=== PATIENT | female | born 1995 | race African-American/Black ===

== ENCOUNTER 2017-02-26 07:39 | Emergency (ER) | payer BC ==
[~2017-02-26] VITALS: Ht 170.2 cm; Wt 78.5 kg
[2017-02-26 07:45] VITALS: BP 142/70
--- NOTE | 2017-02-26 08:12 | PHYS DOC ---
Past Medical History Past Medical History: No Pertinent History Past Surgical History: Tonsillectomy Alcohol Use: Occasionally Drug Use: None Adult General Chief Complaint Chief Complaint: LACERATION/AVULSION [facility] HPI Patient is a 21 year old female resents to the emergency department stating that she has a cut on the base of her left index finger. She states last night she was brushing dishes when a dish cut her. She states that she has washes area multiple times. She felt that she needed to come in and have it looked at today as it has been bleeding off and on. Patient states her last tetanus immunization was in 2008. Patient has full range of motion of her hand. Patient is right hand dominant. Review of Systems Review of Systems Constitutional: Denies fever or chills [] Eyes: Denies change in visual acuity, redness, or eye pain [] HENT: Denies nasal congestion or sore throat [] Respiratory: Denies cough or shortness of breath [] Cardiovascular: No additional information not addressed in HPI [] GI: Denies abdominal pain, nausea, vomiting, bloody stools or diarrhea [] : Denies dysuria or hematuria [] Musculoskeletal: Denies back pain or joint pain [] Integument: Denies rash or skin lesions. Laceration to the left index finger Neurologic: Denies headache, focal weakness or sensory changes [] Endocrine: Denies polyuria or polydipsia [] Current Medications Current Medications Current Medications Medications (Trade) Dose Ordered Sig/Reinier Start Time Stop Time Status Last Admin Dose Admin Diphtheria/ Tetanus/Acell Pertussis (Boostrix) 0.5 ml ONCE ONCE 02/26/17 08:15 02/26/17 08:16 Allergies Allergies Allergies Coded Allergies Type Severity Reaction Last Updated Verified No Known Drug Allergies 06/07/14 No Physical Exam Physical Exam Constitutional: Well developed, well nourished, no acute distress, non-toxic appearance. [] HENT: Normocephalic, atraumatic, bilateral external ears normal, oropharynx moist, no oral exudates, nose normal. [] Eyes: PERRLA, EOMI, conjunctiva normal, no discharge. [] Neck: Normal range of motion, no tenderness, supple, no stridor. [] Cardiovascular:Heart rate regular rhythm, no murmur [] Lungs & Thorax: Bilateral breath sounds clear to auscultation [] Skin: Warm, dry, no erythema, no rash. Patient with 0.5 cm laceration noted to the base of the left index finger. No bleeding or drainage noted from the site. Back: No tenderness Extremities: No tenderness, no cyanosis, no clubbing, ROM intact, no edema. [] Neurologic: Alert and oriented X 3, normal motor function, normal sensory function, no focal deficits noted. [] Psychologic: Affect normal, judgement normal, mood normal. [] Current Patient Data Vital Signs Vital Signs Date Time Temp Pulse Resp B/P (MAP) Pulse Ox O2 Delivery O2 Flow Rate FiO2 02/26/17 07:45 98.0 85 16 97 Room Air 98.0 EKG EKG [] Radiology/Procedures Radiology/Procedures [] Course & Med Decision Making Course & Med Decision Making Pertinent Labs and Imaging studies reviewed. (See chart for details) Site was cleaned with soap and water. Dermabond was used to closed the area with Steri-Strips. Patient was provided with signs and symptoms of infections and signs and symptoms to return to the emergency department. Patient agrees with discharge instructions, treatment regimen and followup recommendations. Patient will be discharged home in stable condition. [] Dragon Disclaimer Dragon Disclaimer This electronic medical record was generated, in whole or in part, using a voice recognition dictation system. Departure Departure Impression: Primary Impression: Laceration of finger Disposition: 01 HOME, SELF-CARE Condition: STABLE Referrals: NON,STAFF (PCP) Patient Instructions: Diphtheria Toxoid; Tetanus Toxoid Adsorbed, DT, Td, Laceration Care, Adult, Rozm-he-Lian, Skin Adhesive Strip Removal, Sterile Tape Wound Closure Additional Instructions: Activity as tolerated Tylenol or Ibuprofen for pain and discomfort Keep the area clean and dry Clean the site with soap and water at least twice a day Watch for signs and symptoms of infections: redness, warmth, tenderness or any yellow/greenish drainage if this should happen followup with your primary care provider immediately Followup with your primary care provider in 3-5 days Return to emergency department as needed for signs and symptoms that become worse. LOREN PANIAGUA APRN February 26, 2017 08:12
[2017-02-26] MEDS ORDERED: DIPHTH,PERTUSS(ACELL),TET TOX 0.5 ML DISP.SYRIN. VAX IM ONE (08:15)
== END 2017-02-26 08:29 | disposition home or self-care (01) ==
LOC: ER 07:39
DX: S61.211A Laceration without foreign body of left index finger without damage to nail, initial encounter (principal); W45.8XXA Other foreign body or object entering through skin, initial encounter; Y93.89 Activity, other specified; Y92.89 Other specified places as the place of occurrence of the external cause; Y99.8 Other external cause status
CPT/HCPCS: 12001; 90471; 90715; 99283-25

== ENCOUNTER 2017-03-04 22:35 | Emergency (ER) | payer BC ==
[~2017-03-04] VITALS: Ht 170.2 cm; Wt 77.1 kg
[2017-03-04 22:55] VITALS: BP 115/57
--- NOTE | 2017-03-04 23:13 | PHYS DOC ---
Past Medical History Past Medical History: No Pertinent History Past Surgical History: Tonsillectomy Alcohol Use: Occasionally Drug Use: None Adult General Chief Complaint Chief Complaint: UPPER EXTREMITY PAIN HPI HPI Patient is a 21 year old female who presents with moderate left upper extremity pain worse on lifting her upper extremity after receiving a tetanus vaccine on February 26, 2017 at [facility]. Patient denies any fever. Denies any rash. Denies any difficulty breathing or swallowing. She states she has tried Tylenol with no relief. Review of Systems Review of Systems Constitutional: Denies fever or chills [] Eyes: Denies change in visual acuity, redness, or eye pain [] HENT: Denies nasal congestion or sore throat [] Respiratory: Denies cough or shortness of breath [] Cardiovascular: No additional information not addressed in HPI [] GI: Denies abdominal pain, nausea, vomiting, bloody stools or diarrhea [] : Denies dysuria or hematuria [] Musculoskeletal: Left upper extremity pain after receiving tetanus vaccine Integument: Denies rash or skin lesions [] Neurologic: Denies headache, focal weakness or sensory changes [] Endocrine: Denies polyuria or polydipsia [] Allergies Allergies Allergies Coded Allergies Type Severity Reaction Last Updated Verified No Known Drug Allergies 06/07/14 No Physical Exam Physical Exam Constitutional: Well developed, well nourished, no acute distress, non-toxic appearance. [] HENT: Normocephalic, atraumatic, bilateral external ears normal, oropharynx moist, no oral exudates, nose normal. [] Eyes: PERRLA, EOMI, conjunctiva normal, no discharge. [] Neck: Normal range of motion, no tenderness, supple, no stridor. [] Cardiovascular:Heart rate regular rhythm, no murmur [] Lungs & Thorax: Bilateral breath sounds clear to auscultation [] Abdomen: Bowel sounds normal, soft, no tenderness, no masses, no pulsatile masses. [] Skin: Warm, dry, no erythema, no rash. [] Back: No tenderness, no CVA tenderness. [] Extremities: Tattoos noted on the left upper extremity. Left upper extremity with no edema and no ecchymosis, tenderness diffusely on palpation of the left upper extremity. Full range of motion to the left upper extremity. Adequate radial, medial, ulnar sensation to the left upper extremity. Cap refill less than 2 seconds and left upper extremity. Sensation intact to the left upper extremity. Neurologic: Alert and oriented X 3, normal motor function, normal sensory function, no focal deficits noted. [] Psychologic: Affect normal, judgement normal, mood normal. [] Current Patient Data Vital Signs Vital Signs Date Time Temp Pulse Resp B/P (MAP) Pulse Ox O2 Delivery O2 Flow Rate FiO2 03/04/17 22:55 98.5 78 16 98 Room Air 98.5 EKG EKG [] Radiology/Procedures Radiology/Procedures [] Course & Med Decision Making Course & Med Decision Making Pertinent Labs and Imaging studies reviewed. (See chart for details) Patient is in the ED with left upper extremity pain after receiving tetanus vaccine on February 26, 2017. Informed patient this vaccine can cause soreness and pain for a couple days later. Recommended she takes ibuprofen which I wrote a prescription for. Recommended icing and elevating the extremity. Encouraged her to take the extremity through full range of motion several times a day. Instructed her to follow-up with her own PCP in 1-2 weeks. Dragon Disclaimer Dragon Disclaimer This electronic medical record was generated, in whole or in part, using a voice recognition dictation system. Departure Departure Impression: Primary Impression: Left arm pain Disposition: 01 HOME, SELF-CARE Condition: STABLE Referrals: CUBA OSPINA MD (PCP) follow up with your doctor in one week Patient Instructions: Diphtheria Toxoid; Tetanus Toxoid Adsorbed, DT, Td Additional Instructions: You were seen for left upper extremity pain after receiving a tetanus vaccine on February 26, 2017. This is expected pain and soreness from this vaccine. We recommend you take your left upper extremity through full range of motion several times a day. Ice and elevated. Take the provided ibuprofen as prescribed. Come back to the ED if symptoms worsen or you have new concerning symptoms. Scripts Ibuprofen (IBUPROFEN) 800 Mg Tablet 800 MG PO PRN Q6HRS Y for INFLAMMATION, #30 TAB Prov: MIS SAHNI APRN 03/04/17 MIS SAHNI APRN March 04, 2017 23:13
[2017-03-04] MEDS ORDERED: IBUP-1060 PO (23:17)
== END 2017-03-04 23:25 | disposition home or self-care (01) ==
LOC: ER 22:35
DX: M79.622 Pain in left upper arm (principal)
CPT/HCPCS: 99282